=== PATIENT | male | born 1945 | race Caucasian/White ===

== ENCOUNTER 2017-02-25 06:30 | Day surgery (SDC) | payer MEDICARE ==
[2017-02-25] VITALS (8 sets, daily range): BP systolic 112–182; BP diastolic 65–104; PULSE 58–90; RESP 18–20; TEMP 95.3–98; O2SAT 95–99
[~2017-02-25] VITALS: Ht 177.8 cm; Wt 74.0 kg
[~2017-02-25 06:30] MED LIST: ASPI1TAB69 PO; FLAX1000 PO; MULT-6 PO; OMEGCAP PO
[2017-02-25] MEDS ORDERED: POVIDONE IODINE 5% (ANTISEPSIS KIT) 4 APPLICATIONS EACH NARE PRN (07:15)
[2017-02-25] MEDS ORDERED: CHLORHEXIDINE GLUCONATE 2 % 1 PACK (2 CLOTHS) TOPICAL PRN (07:15)
[2017-02-25] MEDS ORDERED: SODIUM CHLORID 0.9% 500 ML IV PRN (07:15)
[2017-02-25] MEDS ORDERED: LACTATED RINGER'S 1000 ML IV PRN (07:15)
[2017-02-25] MEDS ORDERED: INSULIN HUMAN REGULAR 1,000 UNITS/10 ML VIAL SQ PRN (07:15)
[2017-02-25] MEDS ORDERED: METOPROLOL TARTRATE 25 MG TAB PO PRN (07:15)
[2017-02-25] MEDS ORDERED: ceFAZolin 2 GM PREMIX 50 ML IV SCH (07:15)
[2017-02-25] MEDS ORDERED: OMEGCAP20 (07:51)
[2017-02-25] MEDS ORDERED: OMEGCAP PO (07:51)
[2017-02-25] MEDS ORDERED: OCUVTAB PO (07:51)
[2017-02-25] MEDS ORDERED: PROB1CAP12 PO (07:51)
[2017-02-25] MEDS ORDERED: BOSW5TAB PO (07:51)
[2017-02-25] MEDS ORDERED: MULT-135 PO (07:51)
[2017-02-25] MEDS ORDERED: SODIUM CHLORIDE 0.9% 1000 ML IV SCH (08:30)
[2017-02-25] MEDS ORDERED: LEVOFLOXACIN 500 MG PREMIX 100 ML - nephrostomy tube insertion or exchange IV SCH (08:30)
[2017-02-25 08:51] LABS: APTT (PATIENT) 25.9 SEC (24.3-30.1); PROTHROMBIN TIME - PATIENT 10.7 SEC (9.8-11.6)
[2017-02-25] MEDS ORDERED: fentaNYL CITRATE 250 MCG/5 ML AMP ONE ×2 (09:32→13:00)
[2017-02-25] MEDS ORDERED: MIDAZOLAM HCL 5 MG/5 ML VIAL ONE (09:32)
--- NOTE | 2017-02-25 10:25 | PD.RAD ---
Post Procedure Progress Note Pre Procedure Diagnosis: (1) Renal calculus, right Post Procedure Diagnosis: (1) Renal calculus, right Procedure Date: February 25, 2017 Supervising Radiologist: Joshua Bower Anesthesia: Local, Conscious Sedation Plan of Activity Patient to Unit: ROPU Patient Condition: Good Additional Comments: 2 Cm right renal stone Post right nephrostomy with placement of an 8 micronesian nephrostomy tube in the collecting system and a 4 micronesian tube down to the bladder. Tubes in good position. See PACS Report for procedural detail/treatment Joshua Bower MD February 25, 2017 10:25
[2017-02-25] MEDS ORDERED: IOHEXOL 350 MG/ML 50 ML BTL (for RAD DIAG) ONE (10:33)
[2017-02-25] MEDS ORDERED: FAMOTIDINE 20 MG/2 ML VIAL ONE (12:24)
[2017-02-25] MEDS ORDERED: APREPITANT 40 MG CAP ONE (12:25)
[2017-02-25] MEDS ORDERED: LACTATED RINGER'S 1000 ML INJ 1,000 ML IV ONE (13:39)
[2017-02-25] MEDS ORDERED: PROPOFOL 200 MG/20 ML AMP IV ONE (13:39)
[2017-02-25] MEDS ORDERED: NALOXONE HCL 0.4 MG/ML AMP IV ONE (13:39)
[2017-02-25] MEDS ORDERED: ONDANSETRON HCL 4 MG/2 ML VIAL IV PUSH ONE (13:39)
[2017-02-25] MEDS ORDERED: NEOSTIGMINE 3 MG/3 ML SYR IV ONE (13:39)
--- NOTE | 2017-02-25 14:19 | RADRPT ---
EXAM DATE/TIME: 02/25/2017 09:49 [facility] COMPARISON: PERCUTANEOUS ANTEGRADE PYELO,RT, February 25, 2017, 0:00. INDICATIONS : Patient with kidney stone in need of nephrostomy catheter placement. MEDICAL HISTORY : Melanoma left arm and scalp, Kidney stone SURGICAL HISTORY : Renal calculi extraction, Colonoscopy ENCOUNTER: Initial ACUITY: 1 month PAIN SCORE: 0/10 FLUORO TIME: 6.8 minutes IMAGE SERIES: 3 SEDATION TIME: 45 minutes CONTRAST: 20 cc Omnipaque (iohexol) 350 MEDICATION(S): 1.) 5 mg midazolam (Versed) IV 2.) 250 mcg fentanyl (Sublimaze) IV Prophylactic antibiotics were administered with appropriate pre-procedure timing. Vancomycin within 2 hours of procedure, Ancef (or alternative) within 1 hour of procedure. DEVICE(S): 1.) 8 Maltese X25CM Expel nephrostomy catheter 2.) [id number] [place] PROCEDURE : 1. right percutaneous nephrostomy placement with 4 Maltese catheter placed down to the bladder. The risks, benefits and alternatives to the procedure were explained and verbal and written consent w as obtained. The site was prepped in sterile fashion. Full sterile technique was used, including ca p, mask, sterile gloves and gown and a large sterile sheet. Hand hygiene and 2% chlorhexidine and/or betadine/alcohol prep was utilized per protocol for cutaneous antisepsis. The skin and subcutaneous tissues were infiltrated with local anesthetic solution. A suitable site of the right kidney was localized. 25 gauge needle was advanced onto the stone within the collecting system. The collecting system was inflated with a small amount of contrast and room a ir. A posterior midpole calyx was accessed under direct fluoroscopic visualization. The 0.018 wire wa s exchanged for a 0.035 wire and a 4 Maltese catheter. This combination was advanced down to the [facility]. The original Glidewire was exchanged for a stiff angled Glidewire. A 6 Maltese sheath was advanced over the wire. A second Glidewire was advanced to the bladder. The introducer sheath was removed. A 4 Maltese catheter was advanced from the skin the back down to the bladder. In addition, an 8 Maltese n ephrostomy tube was coiled within the collecting system. Fluoroscopic imaging and a small injection of contrast demonstrated the nephrostomy tube and a 4 Fren ch ureteral tube to be in excellent position. CONCLUSION: 1. Successful nephrostomy placement for percutaneous nephrolithotomy. Joshua Bower MD on February 25, 2017 at 14:05 Board Certified Radiologist. This report was verified electronically.
[2017-02-25] MEDS ORDERED: oxyCODONE/ACETAMINOPHEN 5 MG/325 MG TAB PO PRN ×2 (15:45)
[2017-02-25] MEDS ORDERED: HYDROmorphone HCL PF 2 MG/ML VIAL IV PRN (15:45)
[2017-02-25] MEDS ORDERED: ONDANSETRON HCL 4 MG/2 ML VIAL IV PRN (15:45)
[2017-02-25] MEDS ORDERED: HYDROmorphone HCL PF 1 MG/ML VIAL IV PRN (15:45)
[2017-02-25] MEDS ORDERED: Post-op Orders (for Pharmacy) MISC XX ONE (15:45)
[2017-02-25] MEDS ORDERED: SODIUM CHLORIDE 0.9% FLUSH 10 ML FLUSH IV FLUSH PRN (15:45)
[2017-02-25] MEDS ORDERED: *LABETALOL HCL 100 MG/20 ML VIAL PERIprocedural Use ONLY ONE (16:10)
--- NOTE | 2017-02-25 16:24 | RADRPT ---
EXAM DATE/TIME: 02/25/2017 13:44 [facility] COMPARISON: FLUOROSCOPY PORTABLE UP TO 1HR, February 25, 2017, 0:00. INDICATIONS : Lithotripsy right kidney. MEDICAL HISTORY : None. SURGICAL HISTORY : None. ENCOUNTER: Initial ACUITY: 1 day PAIN SCORE: Non-responsive. LOCATION: Right abdomen. FINDINGS: Single intraoperative view of the abdomen was performed. This review demonstrates an 8 Uzbek nephros davi drain in good position. There is a 4 Uzbek tube traversing the ureter. Subsequent imaging demonstrates extravasation of contrast from the collecting system. There is a Male cot tube in position. CONCLUSION: 1. Diffuse extravasation of contrast from the collecting system. Malecot tube in position. Joshua Bower MD on February 25, 2017 at 16:11 Board Certified Radiologist. This report was verified electronically.
[2017-02-25] MEDS ORDERED: DO NOT ADM ANY ANTICOAGULANT DRUGS PRN (16:30)
[2017-02-25] MEDS: SODIUM CHLOR 0.9% 1000 ML INJ 1,000 ML IV SCH ×2 (17:01→20:19)
[2017-02-25] MEDS: HYDROmorphone HCL PF 1 MG/ML VIAL IV PRN (17:55)
[2017-02-25] MEDS: OXYBUTYNIN CHLORIDE 5 MG TAB PO SCH (17:55)
[2017-02-25] MEDS: SODIUM CHLORIDE 0.9% FLUSH 10 ML FLUSH IV FLUSH SCH (20:19)
[2017-02-26 00:30] VITALS: BP 142/73; PULSE 72; RESP 18; TEMP 96.6; O2SAT 96
[2017-02-26 04:20] VITALS: BP 136/81; PULSE 80; RESP 18; TEMP 96.8; O2SAT 96
[2017-02-26] MEDS: HYDROmorphone HCL PF 1 MG/ML VIAL IV PRN (04:40)
[2017-02-26 04:58] LABS: HEMATOCRIT 37.9 % (39.0-51.0); MEAN CELL VOLUME 95.5 FL (80.0-100.0); MEAN CORPUSCULAR HEMOGLOBIN 32.4 PG (27.0-34.0); MEAN CORPUSCULAR HGB CONC 33.9 % (32.0-36.0); PLATELET COUNT 185 TH/MM3 (150-450); RED BLOOD COUNT 3.96 MIL/MM3 (4.50-5.90); RED CELL DISTRIBUTION WIDTH 13.2 % (11.6-17.2); REVIEW FLAG FINAL; WHITE BLOOD COUNT 13.5 TH/MM3 (4.0-11.0)
[2017-02-26 05:10] LABS: BICARBONATE 25.1 MEQ/L (21.0-32.0); POTASSIUM 4.4 MEQ/L (3.5-5.1)
--- NOTE | 2017-02-26 07:31 | MP ---
cc: DAVEY MONACO MD DATE OF SURGERY: 02/25/2017. PREOPERATIVE DIAGNOSIS: Right nephrolithiasis. POSTOPERATIVE DIAGNOSIS: Right nephrolithiasis. OPERATION: Right percutaneous nephrolithotripsy. SURGEON: Davey Monaco MD. PERTINENT FINDINGS: 1. Large approximately 3 cm renal stone noted in the right renal pelvis with another stone approximately 8 to 9 mm noted in the upper pole lacho. 2. Successful removal of the entire large renal pelvis stone. 3. Unable to reach the upper pole lacho due to the access. 4. Right ureteral stent placement 6 x 26 double-J. INDICATIONS FOR THE PROCEDURE / HISTORY OF PRESENT ILLNESS: Jae Bah is a 51-year-old male who was found to have a large right renal stone noted on PET/CT scan. He presents today for management with a right PCNL. DESCRIPTION OF THE PROCEDURE IN DETAIL: After proper informed consent was obtained, the patient was brought to the operating room. The patient was placed under general anesthesia. The patient was then placed in the prone position after a Graham catheter was placed on the operating room table. All pressure points were ensured to be padded properly. At this point, the patient was prepped and draped in the standard sterile fashion. After a proper time out was completed, contrast was administered through the left nephrostomy tube site. This identified a large filling defect with a stone as well as a smaller stone noted in the upper pole lacho. At this point, a super-stiff wire was able to be passed through the nephrostomy and into the left collecting system and noted in the bladder. A duel-lumen was then placed and a second wire was passed down the ureter. At this point, the NephroMax 30-Faroese balloon was inserted and the tract was dilated up to a 30 Faroese. Following this, the Nephroscope was advanced through and visualization of the renal pelvis was completed. At this point, it took an extensive period of time to find the stone. Although it appeared to be in the renal pelvis, it was in what appeared to be an anterior portion of the upper lacho, which was difficult to reach via the access provided. After extensive manipulation and investigation, the stone was eventually able to be identified. It was attempted to be grasped and then brought through as the nephroscope was difficult to reach the stone. However, the basket retrieved the stone, but was unable to bring through the infundibulum and out through the sheath. Therefore again dilation was completed at the level of the infundibulum in order to allow the nephroscope to be passed in. The nephroscope was passed through and the ____ was used to fragment the stone and remove all fragments. After adequate fragmentation, the scope was removed. A right ureteral stent was then successfully placed in the right collecting system with good curl in the renal pelvis as well as in the bladder. Following this, a 20-Faroese nephrostomy tube was placed into the right kidney with nephrostomy tube drainage with 3 cc noted in the balloon. This was stitched in place using silk stitches. The patient was then awakened from anesthesia and taken to the post-anesthesia care unit in good and stable condition. The patient tolerated the procedure well. There were no complications. DISPOSITION: The patient will be admitted for overnight observation. The plan is to remove the nephrostomy tube tomorrow and have the patient go home. The patient will likely need ESWL or ureteroscopy to remove the remaining stone burden, which we will discuss with the patient upon follow up. Davey Monaco M.D. MEAGAN/ANURAG /3:39 PM /7:32 AM
[2017-02-26 08:00] VITALS: BP 146/69; PULSE 72; RESP 18; TEMP 97.1; O2SAT 95
[2017-02-26] MEDS ORDERED: CIPR-9 PO (08:15)
[2017-02-26] MEDS ORDERED: PERC5TAB12 PO (08:15)
--- NOTE | 2017-02-26 08:44 | HHI.DS ---
Discharge Summary Admission Date 02/25/17 Discharge Date: February 26, 2017 Admitting Diagnosis Nephrolithiasis Procedures Right PCNL CBC/BMP: 02/26/17 0432 02/26/17 0432 Significant Findings Laboratory Tests Test 02/26/17 04:32 White Blood Count 13.5 TH/MM3 (4.0-11.0) Red Blood Count 3.96 MIL/MM3 (4.50-5.90) Hemoglobin 12.8 GM/DL (13.0-17.0) Hematocrit 37.9 % (39.0-51.0) Chloride Level 110 MEQ/L (98-107) Estimat Glomerular Filtration 68 ML/MIN (>89) Rate Random Glucose 120 MG/DL (74-106) Calcium Level 7.9 MG/DL (8.5-10.1) Hospital Course Patient underwent right PCNL on 02/25/17. Patient did well postoperatively, pain well controlled, tolerating diet. Discharged home on POD#1 with follow-up in clinic in 2 weeks. Plan to treat remaining stone burden with ureteroscopy vs ESWL. Patient has a right ureteral stent in place Pt Condition on Discharge: Good Discharge Instructions DIET: Follow Instructions for: As Tolerated, No Restrictions Activities you can perform: Regular-No Restrictions New Medications: Ciprofloxacin (Cipro) 500 Mg Tab 500 MG PO BID Infection #6 Ref 0 TAB Oxycodone-Acetaminophen (Percocet) 5-325 mg Tab 2 TAB PO Q6H PRN PAIN #60 Ref 0 TAB Continued Medications: Mjuitdpba-Roikyggkhnm-Bofvpis (Osteo Bi-Flex One A Day) 1 Tab 2 TAB PO DAILY TAB Fish Oil-Cholecalciferol (Immaculata-3 Fish Oil/Vitamin) 1,000-1,000 Mg Cap 3 CAP PO DAILY Nutritional Supplement Ref 0 CAP Multiple Vitamin (Multi Vitamin) 1 Tab Tab 1 TAB PO DAILY TAB Multiple Vitamins W/ Minerals (Ocuvite) 1 Tab 1 TAB PO DAILY Nutritional Supplement Ref 0 TAB Immaculata 3 Fatty Acids-Immaculata 6 FA (Flax + Dha) 1 Cap Cap 4 CAP Probiotic Product (Acidophilus) 1 Cap Cap 1 CAP PO DAILY Ron Godoy MD February 26, 2017 08:44
--- NOTE | 2017-02-26 08:48 | HHI.PR ---
Subjective Patient symptoms today POD#1 Right PCNL No issues overnigiht. Pain well controlled Objective Vital Signs Vital Signs Date Time Temp Pulse Resp B/P Pulse Ox O2 Delivery O2 Flow Rate FiO2 02/26/17 08:00 97.1 72 18 146/69 95 02/26/17 04:20 96.8 80 18 136/81 96 02/26/17 00:30 96.6 72 18 142/73 96 02/25/17 20:38 96.3 70 18 112/72 96 02/25/17 20:15 21 02/25/17 17:00 95.3 58 20 175/79 96 02/25/17 17:00 50 20 159/77 98 Room Air 02/25/17 16:45 54 14 165/79 98 Room Air 02/25/17 16:30 52 13 161/81 100 Room Air 02/25/17 16:15 57 15 166/78 100 Room Air 02/25/17 16:08 97.4 71 22 192/98 100 Nasal Cannula 2 02/25/17 11:45 65 18 137/86 98 02/25/17 11:15 61 18 133/84 98 02/25/17 10:45 70 18 159/94 99 02/25/17 10:30 98.0 90 18 161/104 98 Result Diagram: 02/26/17 04302/26/17 043 Objective Remarks NAD, AAOx3 Resp NL Right flank drain in place, bloody output, minimal Ab S/NT Graham removed this am Medications and IVs Current Medications Medications (Trade) Dose Ordered Sig/Susan Route Start Time Stop Time Status Last Admin Lactated Ringer's 1,000 ml @ 30 mls/hr Q24H PRN IV 02/25/17 07:15 02/28/17 07:14 Sodium Chloride 500 ml @ 30 mls/hr [id number] PRN IV 02/25/17 07:15 02/28/17 07:14 Sodium Chloride 1,000 ml @ 30 mls/hr Q24H IV 02/25/17 08:30 02/28/17 08:29 02/25/17 08:30 (NS 1000 ml Inj) 1,000 ml @ 125 mls/hr Q8H IV 02/25/17 15:36 02/25/17 20:19 (NS Flush) 2 ml UNSCH PRN IV FLUSH 02/25/17 15:45 (NS Flush) 2 ml BID IV FLUSH 02/25/17 21:00 (Percocet 5-325 Mg) 1 tab Q4H PRN PO 02/25/17 15:45 (Percocet 5-325 Mg) 2 tab Q4H PRN PO 02/25/17 15:45 (Dilaudid Pf Inj) 0.5 mg Q2H PRN IV 02/25/17 15:45 (Ditropan) 5 mg TID PO 02/25/17 18:00 02/25/17 17:55 Ondansetron HCl 4 mg 4 mg Q6H PRN IV 02/25/17 15:45 02/25/17 17:54 (Ancef Inj/NS Inj) 100 ml @ 200 mls/hr Q8H IV 02/25/17 20:00 02/26/17 12:29 02/26/17 04:31 (Heparin Inj) 5,000 units ONCE ONCE SQ 02/26/17 15:00 02/26/17 15:01 (Dilaudid Pf Inj) 1 mg Q2H PRN IV 02/25/17 15:47 02/26/17 04:40 Miscellaneous Information ALL NURSING DEPARTME... UNSCH PRN .XX 02/25/17 16:30 02/26/17 16:29 (Heparin Inj) 5,000 units Q12H SQ 02/26/17 23:00 (Pneumovax-23 Inj) 25 mcg ONCE ONCE IM 02/26/17 10:00 02/26/17 10:01 Assessment and Plan Assessment and Plan -Pain well controlled -Regular diet -Nephrostomy tube drain removed at bedside this am -Graham removed this am -Patient to be discharged today once tolerating diet and voided Ron Godoy MD February 26, 2017 08:47
[2017-02-26] MEDS: OXYBUTYNIN CHLORIDE 5 MG TAB PO SCH (09:02)
[2017-02-26] MEDS: SODIUM CHLORIDE 0.9% FLUSH 10 ML FLUSH IV FLUSH SCH (09:03)
[2017-02-26] MEDS ORDERED: PNEUMOCOCCAL POLYVALENT INJ 25 MCG/0.5 ML SYR IM ONE (10:00)
[2017-02-26] MEDS ORDERED: HEPARIN SODIUM - SQ 10,000 UNITS/ML VIAL SQ ONE (15:00)
[2017-02-26] MEDS ORDERED: HEPARIN SODIUM - SQ 10,000 UNITS/ML VIAL SQ SCH (23:00)
== END 2017-02-26 12:35 | disposition home or self-care (01) ==
LOC: HSDC 06:30 → HRIP 07:38 → N07B 17:20 → HSDC 02-26 12:35
PROVIDERS: ATTEND Urology
DX: N20.0 Calculus of kidney (principal); Z23 Encounter for immunization; Z85.820 Personal history of malignant melanoma of skin; Z01.818 Encounter for other preprocedural examination
CPT/HCPCS: 00862; 50080; 50695; 74000; 76000; 80048; 82370; 85027; 85610; 85730; 86850; 86900; 86901; 88300; 90732; 99152; 99153; C1726; C1729; C1769; C1887; C2617; G0009; J0690; J1170; J1956; J2250; J2310; J2405; J2710; J3010; J7030; J7120; J8501; Q9967; 90471